=== PATIENT | female | born 2000 | race American Indian/Alaskan Native ===

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

== ENCOUNTER 2022-03-13 13:47 | Emergency (ER) | payer MEDICAID ==
[2022-03-13 13:53] VITALS: BP 112/70
== END 2022-03-13 21:45 | disposition left against medical advice (07) ==
LOC: ED 13:47
DX: N93.9 Abnormal uterine and vaginal bleeding, unspecified (principal); Z53.21 Procedure and treatment not carried out due to patient leaving prior to being seen by health care provider

== ENCOUNTER 2022-03-14 08:47 | Emergency (ER) | payer MEDICAID ==
--- NOTE | 2022-03-14 10:51 | Emergency Department Report ---
ED Female HPI - General Chief complaint: Vaginal Bleeding Stated complaint: 10WKS /BLEEDING Time Seen by Provider: 03/14/22 10:34 Source: patient, family Mode of arrival: Ambulatory Limitations: No Limitations - History of Present Illness Initial comments: Patient is a 21-year-old female that comes to the emergency room known to be 15 weeks with vaginal spotting. She states the bleeding is light. She has mild cramping. She has not seen an [facility]. This is her first . Patient denies any vaginal discharge. She denies any fever or chills. Patient is ambulatory, nontoxic [id number] on arrival to the ER. MD Complaint: vaginal bleeding -: Gradual, hour(s) Severity: mild Severity scale (0 -10): 1 Quality: cramping Consistency: constant Improves with: none Worsens with: none Are you Now?: Yes Associated Symptoms: vaginal bleeding - Related Data Sexually active: Yes : 1 Previous Rx's Medication Instructions Recorded Last Taken Type Amoxicillin [Trimox CAP] 500 mg PO BID #20 capsule 03/14/22 Unknown Rx Allergies Allergy/AdvReac Type Severity Reaction Status Date / Time No Known Allergies Allergy Verified 03/14/22 17:26 ED Review of Systems ROS: Stated complaint: 10WKS /BLEEDING Other details as noted in HPI Comment: All other systems reviewed and negative ED Past Medical Hx - Past Medical History Previous Medical History?: No - Surgical History Past Surgical History?: No - Family History Family history: no significant - Social History Smoking Status: Former Smoker Substance Use Type: None - Medications Home Medications: Home Medications Medication Instructions Recorded Confirmed Last Taken Type Amoxicillin [Trimox CAP] 500 mg PO BID #20 capsule 03/14/22 Unknown Rx ED Physical Exam - General Limitations: No Limitations General appearance: alert, in no apparent distress - Head Head exam: Present: atraumatic, normocephalic - Eye Eye exam: Present: normal appearance - ENT ENT exam: Present: mucous membranes moist - Neck Neck exam: Present: normal inspection - Respiratory Respiratory exam: Present: normal lung sounds bilaterally. Absent: respiratory distress - Cardiovascular Cardiovascular Exam: Present: regular rate, normal rhythm. Absent: systolic murmur, diastolic murmur, rubs, gallop - GI/Abdominal GI/Abdominal exam: Present: soft, normal bowel sounds - Extremities Exam Extremities exam: Present: normal inspection - Back Exam Back exam: Present: normal inspection - Neurological Exam Neurological exam: Present: alert, oriented X3 - Psychiatric Psychiatric exam: Present: normal affect, normal mood - Skin Skin exam: Present: warm, dry, intact, normal color. Absent: rash ED Course Vital Signs 03/14/22 03/14/22 03/14/22 09:01 12:47 18:36 Temperature 98.9 F 98.8 F Pulse Rate 96 H 90 66 Respiratory 16 16 16 Rate Blood Pressure 128/84 Blood Pressure 134/62 116/78 [Right] O2 Sat by Pulse 98 99 100 Oximetry ED Medical Decision Making - Lab Data Result diagrams: 03/14/22 09:58 03/14/22 09:58 - Radiology Data Radiology results: report reviewed, image reviewed See report - Medical Decision Making Labs 03/14/22 03/14/22 03/14/22 09:58 09:58 10:50 WBC 7.8 RBC 3.78 Hgb 11.5 Hct 33.5 MCV 89 MCH 30 MCHC 34 RDW 13.5 Plt Count 315 Lymph % (Auto) 18.2 [place] % (Auto) 6.0 Eos % (Auto) 0.8 Baso % (Auto) 0.3 Lymph # (Auto) 1.4 [place] # (Auto) 0.5 Eos # (Auto) 0.1 Baso # (Auto) 0.0 Seg Neutrophils % 74.7 H Seg Neutrophils # 5.8 Sodium 136 L Potassium 3.6 Chloride 104.6 Carbon Dioxide 22 Anion Gap 13 BUN 6 L Creatinine 0.7 Estimated GFR > 60 BUN/Creatinine Ratio 9 Glucose 84 Calcium 9.1 Total Bilirubin 0.30 AST 11 ALT 8 Alkaline Phosphatase 38 Total Protein 6.6 Albumin 3.7 L Albumin/Globulin Ratio 1.3 Urine Color Urine Turbidity Urine pH Ur Specific [place] Urine Protein Urine Glucose (UA) Urine Ketones Urine Blood Urine Nitrite Urine Bilirubin Urine Urobilinogen Ur Leukocyte Esterase Urine WBC (Auto) Urine RBC (Auto) Blood Type B POSITIVE Ord Rhogam Gestat Weeks Rh pos 03/14/22 Unknown WBC RBC Hgb Hct MCV MCH MCHC RDW Plt Count Lymph % (Auto) [place] % (Auto) Eos % (Auto) Baso % (Auto) Lymph # (Auto) [place] # (Auto) Eos # (Auto) Baso # (Auto) Seg Neutrophils % Seg Neutrophils # Sodium Potassium Chloride Carbon Dioxide Anion Gap BUN Creatinine Estimated GFR BUN/Creatinine Ratio Glucose Calcium Total Bilirubin AST ALT Alkaline Phosphatase Total Protein Albumin Albumin/Globulin Ratio Urine Color Straw Urine Turbidity Clear Urine pH 7.0 Ur Specific [place] 1.010 Urine Protein <15 mg/dl Urine Glucose (UA) Neg Urine Ketones Neg Urine Blood Lg Urine Nitrite Neg Urine Bilirubin Neg Urine Urobilinogen < 2.0 Ur Leukocyte Esterase Mod Urine WBC (Auto) < 1.0 Urine RBC (Auto) < 1.0 Blood Type Ord Rhogam Gestat Weeks Vital Signs 03/14/22 03/14/22 09:01 12:47 Temperature 98.9 F Pulse Rate 96 H 90 Respiratory 16 16 Rate Blood Pressure 128/84 Blood Pressure 134/62 [Right] O2 Sat by Pulse 98 99 Oximetry Labs noted. UA noted. Patient given a gram of Rocephin IM in the ER. Patient denies any back pain. She denies any abdominal pain other than that associated with cramping as a menstrual cycle. She denies fever or chills. She has no vaginal discharge. Ultrasound noted. Rh+ Patient educated on the findings of the above work-up. She knows that she needs to see C[facility] PRESSMAN in 48 hours for recheck. Patient has been advised to use Tylenol for pain. And to avoid drugs and alcohol. I encouraged him to take an [id number] multivitamin. On discharge exam patient is ambulatory, nontoxic [id number] and taking p.o. Patient being discharged home with discharge plan of care including diet, activity, medications and follow-up. She verbalizes understanding of plan of care. - Differential Diagnosis Rule out AB/ectopic Critical care attestation.: If time is entered above; I have spent that time in minutes in the direct care of this critically ill patient, excluding procedure time. ED Disposition Clinical Impression: Vaginal bleeding during UTI (urinary tract infection) Qualifiers: Urinary tract infection type: site unspecified Hematuria presence: without hematuria Qualified Code(s): N39.0 - Urinary tract infection, site not specified Disposition: HOME / SELF CARE / HOMELESS Is pt being admited?: No Does the pt Need Aspirin: No Condition: Stable Instructions: Urinary Tract Infection, Adult, [id number] Additional Instructions: TYLENOL FOR PAIN PELVIC REST MEDICATION ORDERED UNTIL GONE TODAY MAKE SURE OBGYN RECHECKS YOUR URINE AFTER MED IS COMPLETE FOLLOW UP WITH OBGYN IN 48 HOURS FOR RECHECK TAKE THIS PAPERWORK WITH YOU Prescriptions: Amoxicillin [Trimox CAP] 500 mg PO BID #20 capsule Referrals: NORMA WARD MD [Staff Physician] - 3-5 Days Forms: Accompanied Note, Work/School Release Form(ED) Time of Disposition: 17:16
[2022-03-14 11:00] LABS: Basophils % (Auto) 0.3 % (0.0-1.8); Eosinophils # (Auto) 0.1 K/mm3 (0.0-0.4); Eosinophils % (Auto) 0.8 % (0.0-4.3); Hematocrit 33.5 % (30.3-42.9); Hemoglobin 11.5 gm/dl (10.1-14.3); Lymphocytes # (Auto) 1.4 K/mm3 (1.2-5.4); Lymphocytes % (Auto) 18.2 % (13.4-35.0); Mean Corpuscular HGB Conc 34 % (30-34); Mean Corpuscular Volume 89 fl (79-97); Monocytes # (Auto) 0.5 K/mm3 (0.0-0.8); Platelet Count 315 K/mm3 (140-440); Red Blood Count 3.78 M/mm3 (3.65-5.03); Red Cell Distribution Width 13.5 % (13.2-15.2)
[2022-03-14 11:19] LABS: Alanine Aminotransferase 8 units/L (7-56); Albumin 3.7 g/dL (3.9-5); Blood Urea Nitrogen 6 mg/dL (7-17); Calcium 9.1 mg/dL (8.4-10.2); Hemolysis Index 8
[2022-03-14 11:20] LABS: BUN/Creatinine Ratio 9
--- NOTE | 2022-03-14 12:54 | Ultrasound Report ---
Limited OB Ultrasound HISTORY: vag bleed preg. TECHNIQUE: Grayscale and color imaging performed. COMPARISON: None FINDINGS: Uterus measures 11.9 x 6.6 x 8.8 cm with an intrauterine gestation demonstrating a crown-ru mp length of 3.7 cm. This correlates with an EGA of 10 weeks and 4 days and estimated delivery date o f 10/06/2022. heart rate was 160 bpm. Both ovaries are normal. No free fluid. IMPRESSION: Single viable intrauterine gestation as above. Signer Name: Gustavo Lopez MD Signed: 03/14/2022 12:49 PM Workstation Name: [facility]
[2022-03-14 16:04] LABS: Bilirubin,Urine NEG (Negative); Blood,Urine LG (Negative); Color,Urine Straw (Yellow); Protein,Urine <15 mg/dL mg/dL (Negative); Urobilinogen,Urine < 2.0 mg/dL (<2.0)
[2022-03-14 16:05] LABS: RBC,Urine < 1.0 /HPF (0.0-6.0)
[2022-03-14 17:14] LABS: WBC,Urine < 1.0 /HPF (0.0-6.0)
[2022-03-14] MEDS ORDERED: LIDOCAINE-MPF (1%) 10 MG/1 ML VIAL 5 ML INFILTRATI ONE (17:15)
[2022-03-14 18:38] VITALS: BP 116/78
== END 2022-03-14 18:38 | disposition home or self-care (01) ==
LOC: ED 08:47
DX: O20.8 Other hemorrhage in early pregnancy (principal); O23.42 Unspecified infection of urinary tract in pregnancy, second trimester; N39.0 Urinary tract infection, site not specified; Z3A.15 15 weeks gestation of pregnancy; Z87.891 Personal history of nicotine dependence; Z79.899 Other long term (current) drug therapy
CPT/HCPCS: 36415; 76801; 80053; 81001; 85025; 86900; 86901; 96372; 99284; J0696; J3490